=== PATIENT | male | born 1995 | race Caucasian/White ===

== ENCOUNTER → 2018-01-06 | Outpatient (CLI) | payer BC ==
[~2018-01-06] MED LIST: ESCI20TA38 PO
[2018-01-06 13:31] LABS: PLATELET COUNT, AUTOMATED 269 K/uL (150-450)
== END ==
LOC: LAB 13:04
PROVIDERS: ATTEND Nurse Practitioner Family
DX: R19.7 Diarrhea, unspecified (principal); K62.89 Other specified diseases of anus and rectum; K92.1 Melena; K21.9 Gastro-esophageal reflux disease without esophagitis; R10.13 Epigastric pain
CPT/HCPCS: 36415; 82040; 82150; 82247; 82310; 82374; 82435; 82565; 82947; 83690; 84075; 84132; 84155; 84295; 84450; 84460; 84520; 85025

== ENCOUNTER 2018-01-19 01:33 | Day surgery (SDC) | payer BC ==
[~2018-01-19] VITALS: Ht 172.7 cm; Wt 74.8 kg
[2018-01-19] VITALS (7 sets, daily range): BP systolic 97–130; BP diastolic 54–87
[~2018-01-19 01:33] MED LIST changes: +BUS5 PO
[2018-01-19] MEDS ORDERED: GLYCOPYRROLATE 0.2 MG/ML INJ IVP ONE (10:00)
[2018-01-19] MEDS ORDERED: GLYCOPYRROLATE 0.2 MG/ML SDV IVP ONE (12:00)
[2018-01-19] MEDS ORDERED: PROPOFOL EMUL(*) 10MG/ML 20 ML 60 ML ONE (12:28)
[2018-01-19] MEDS ORDERED: LIDOCAINE MPF 1% 5 ML VIAL ONE (12:28)
[2018-01-19] MEDS ORDERED: LIDOCAINE/SOD BICARB 8.4% SYR ID ONE (12:30)
[2018-01-19] MEDS ORDERED: NORMOSOL R SOLN(*) 1000 ML BAG 1,000 ML IV PRN (12:30)
[2018-01-19] MEDS ORDERED: HYDR25SU51 RC (14:28)
[2018-01-19] MEDS ORDERED: PROPOFOL EMUL(*) 10MG/ML 20 ML 20 ML ONE (14:56)
== END 2018-01-19 16:10 | disposition home or self-care (01) ==
LOC: OR 01:33
PROVIDERS: ATTEND Internal Medicine Gastroenterology
DX: K64.8 Other hemorrhoids (principal); K21.9 Gastro-esophageal reflux disease without esophagitis; R10.9 Unspecified abdominal pain; K20.9 Esophagitis, unspecified; K44.9 Diaphragmatic hernia without obstruction or gangrene; K29.70 Gastritis, unspecified, without bleeding
CPT/HCPCS: 00811; 43239; 43249; 45380; 88305; 88313; 88344; J2001; J2704; J3490